=== PATIENT | female | born 1965 | race Two or more races ===

== ENCOUNTER 2017-12-15 11:10 | Outpatient (CLI) | payer OTHER | END 2017-12-15 11:18 | disposition home or self-care (01) | LOC: LAB 11:10 | DX: R50.9 Fever, unspecified (principal) ==

== ENCOUNTER → 2017-12-15 | Outpatient (CLI) | payer OTHER ==
[~2017-12-15] MED LIST: CARAFATE1 G PO; GILTUSS TR TAB1 EACH PO; LEVOXYL25 MCG PO; OMEPRAZOLE40 MG PO; SYNTHROID50 MCG PO; TOBREX5 ML OP; ZANTAC150 MG PO
== END | disposition home or self-care (01) ==
LOC: PPHC 10:10
DX: B34.9 Viral infection, unspecified (principal)

== ENCOUNTER 2018-01-14 15:56 | Emergency (ER) | payer OTHER ==
[~2018-01-14] VITALS: Ht 152.4 cm; Wt 66.2 kg
== END 2018-01-14 18:43 | disposition home or self-care (01) ==
LOC: ER 15:56
DX: M54.5 Low back pain (principal)

== ENCOUNTER 2019-03-07 19:40 | Emergency (ER) | payer OTHER ==
[~2019-03-07] VITALS: Ht 152.4 cm; Wt 68.0 kg
== END 2019-03-07 20:44 | disposition home or self-care (01) ==
LOC: ER 19:40
DX: M54.5 Low back pain (principal)

== ENCOUNTER 2020-05-13 13:07 | Emergency (ER) | payer OTHER ==
[~2020-05-13] VITALS: Ht 152.4 cm; Wt 68.0 kg
[2020-05-13] MEDS ORDERED: LEVOTHYROXINE25 MCG (13:33)
[2020-05-13] MEDS ORDERED: 8 HOUR650 MG PO (17:30)
[2020-05-13] MEDS ORDERED: TESSALON PERLE100 MG PO (17:30)
[2020-05-13] MEDS ORDERED: INTESTINEX680 M2 PO (17:35)
== END 2020-05-13 17:05 | disposition home or self-care (01) ==
LOC: ER 13:07
DX: B34.9 Viral infection, unspecified (principal); Z03.818 Encounter for observation for suspected exposure to other biological agents ruled out; R05 Cough